=== PATIENT | male | born 1990 | race Caucasian/White ===

== ENCOUNTER 2016-09-08 09:48 | Emergency (ER) | payer BC ==
[2016-09-08 09:48] LABS: INFLUENZA A NEG (NEG); INFLUENZA B NEG (NEG)
[2016-09-08] MEDS ORDERED: AMOXICILLIN500 M1 PO (10:41)
[2016-09-08] MEDS ORDERED: MOTRIN600 M1 PO (10:41)
== END 2016-09-08 10:43 | disposition home or self-care (01) ==
LOC: SED 09:48
PROVIDERS: Emergency Medicine
DX: J02.0 Streptococcal pharyngitis (principal); F17.200 Nicotine dependence, unspecified, uncomplicated; Z79.899 Other long term (current) drug therapy
CPT/HCPCS: 87804; 87880; 99283